=== PATIENT | male | born 1945 | race African-American/Black ===

== ENCOUNTER 2017-02-14 02:19 | Inpatient (IN) ==
[2017-02-13 14:40] LABS: URINE MICRO REVIEW NEEDED? NO; URINE SOURCE CLEAN CATCH
[2017-02-13 14:46] LABS: BASO% 0.2 % (0.0-0.8); EOS# 0.03 X1000 (0.0-0.7); EOS% 0.2 % (0.0-10.0); HEMOGLOBIN 12.9 g/dL (14.0-18.0); IMM GRAN# 0.06 X1000 (0.0-0.04); IMM GRAN% 0.5 % (0.0-0.5); LYMPH# 2.11 X1000 (1.2-3.4); MANUAL DIFF NEEDED? YES; MCH 24.2 PG (27-31); MCHC 34.9 g/dL (33-37); MCV 69.5 FL (81-99); MONO# 0.99 X1000 (0.11-0.59); MPV 9.2 FL (7.4-10.4); NEUT% 74.1 % (42.2-75.2); PLT 261 X1000 (130-400); RBC 5.32 XMIL (4.7-6.1)
[2017-02-13 14:56] LABS: BILIRUBIN URINE NEGATIVE (NEGATIVE); BLOOD URINE NEGATIVE (NEGATIVE); COLOR YELLOW; GLUCOSE URINE NEGATIVE (NEGATIVE); LEUKOCYTES URINE NEGATIVE (NEGATIVE); NITRITE URINE NEGATIVE (NEGATIVE); PH URINE 5.5; PROTEIN URINE NEGATIVE (NEGATIVE); SP GRAVITY URINE 1.018; TURBIDITY URINE CLEAR (CLEAR); UROBILINOGEN URINE NORMAL (NORMAL)
[2017-02-13 14:57] LABS: UR EPITHELIAL CELLS <10 /HPF (<10); URINE BACTERIA NEGATIVE /HPF; URINE RBC <10 /HPF (<10); URINE WBC <10 /HPF (<10)
[2017-02-13 15:16] LABS: AGAP 12; BUN 20 mg/dL (8-22); CALCIUM 9.6 mg/dL (8.8-10.2); CHLORIDE 92 mmol/L (98-107); COSMO 265; POTASSIUM 4.6 mmol/L (3.5-5.1); SODIUM 131 mmol/L (136-145); TCO2 27 mmol/L (25-35)
[2017-02-13 15:23] LABS: BANDS 1 % (0-1); LYMPHS 18 % (21-51); MONO 7 % (1-9)
[2017-02-13 16:28] LABS: INR 1.1; PROTIME 11.6 Seconds (9.2-11.7); PTT 28.7 Seconds (22.0-36.0)
[2017-02-14] MEDS ORDERED: MORPHINE IV PRN (07:04)
[2017-02-14] MEDS ORDERED: AMARYL PO SCH (08:00)
[2017-02-14] MEDS ORDERED: ALTACE PO SCH (09:00)
[2017-02-14] MEDS ORDERED: PREDNISONE PO SCH (09:00)
[2017-02-14] MEDS ORDERED: LIPITOR PO SCH (09:00)
[2017-02-14] MEDS ORDERED: ALDACTAZIDE 25/25 PO SCH (09:00)
[2017-02-14] MEDS ORDERED: NORVASC PO SCH (09:00)
[2017-02-14] MEDS ORDERED: EXPAREL 1.3% ONE (10:32)
[2017-02-14] MEDS ORDERED: VANCOMYCIN ONE (10:32)
[2017-02-14] MEDS ORDERED: NEOSPORIN G.U. IRRIGANT ONE (10:32)
[2017-02-14] MEDS ORDERED: TORADOL ONE (10:32)
[2017-02-14] MEDS ORDERED: SODIUM CHLORIDE 0.9% ONE (10:32)
[2017-02-14] MEDS ORDERED: DURAMORPH ONE (10:32)
[2017-02-14] MEDS ORDERED: CLAVE SECONDARY SET 11953 ONE (10:32)
[2017-02-14] MEDS ORDERED: MARCAINE 0.25% PF/EPI 1:200,000 ONE (10:32)
[2017-02-14] MEDS ORDERED: CYKLOKAPRON 1,000 MG/NS 1,000 MG/100 ML IVPB ONE ×2 (10:37)
[2017-02-14] MEDS ORDERED: COLACE ONE (10:42)
[2017-02-14] MEDS ORDERED: CELEBREX ONE (10:43)
[2017-02-14] MEDS ORDERED: REGLAN ONE (10:43)
[2017-02-14] MEDS ORDERED: LYRICA ONE (10:43)
[2017-02-14] MEDS ORDERED: KEFZOL 1 GM/D5W 1 GM/50 ML IVPB ONE (10:43)
[2017-02-14] MEDS ORDERED: PEPCID ONE (10:43)
[2017-02-14] MEDS ORDERED: LR 1,000 ML ONE ×2 (10:43→14:09)
[2017-02-14] MEDS ORDERED: KEFZOL 2 GM/D5W 2 GM/50 ML IVPB ONE (11:40)
[2017-02-14 12:58] LABS: URINE MICRO REVIEW NEEDED? NO; URINE SOURCE CATH
[2017-02-14 13:04] LABS: BILIRUBIN URINE NEGATIVE (NEGATIVE); BLOOD URINE NEGATIVE (NEGATIVE); COLOR YELLOW; GLUCOSE URINE NEGATIVE (NEGATIVE); LEUKOCYTES URINE NEGATIVE (NEGATIVE); NITRITE URINE NEGATIVE (NEGATIVE); PROTEIN URINE NEGATIVE (NEGATIVE); SP GRAVITY URINE 1.016; TURBIDITY URINE CLEAR (CLEAR); UR EPITHELIAL CELLS <10 /HPF (<10); URINE BACTERIA NEGATIVE /HPF; URINE RBC <10 /HPF (<10); URINE WBC <10 /HPF (<10); UROBILINOGEN URINE NORMAL (NORMAL)
[2017-02-14] MEDS ORDERED: NS 1,000 ML ONE (13:49)
[2017-02-14] MEDS ORDERED: FENTANYL ONE (13:51)
[2017-02-14] MEDS ORDERED: DIPRIVAN 1% 500 MG/50 ML BOTTLE ONE (13:52)
[2017-02-14] MEDS ORDERED: ZOFRAN ONE (14:07)
[2017-02-14] MEDS ORDERED: ROBINUL ONE (14:07)
[2017-02-14] MEDS ORDERED: NEO-SYNEPHRINE ONE (14:07)
[2017-02-14] MEDS ORDERED: OFIRMEV 1000 MG/ISOTONIC SOLN 1,000 MG/100 ML BOTTLE ONE (14:08)
[2017-02-14] MEDS ORDERED: DECADRON ONE (14:09)
--- NOTE | 2017-02-14 14:18 | OPERATIVE NOTE ---
PROCEDURE DATE: 02/14/2017 PREOPERATIVE DIAGNOSIS: Degenerative joint disease, left knee. POSTOPERATIVE DIAGNOSIS: Degenerative joint disease, left knee. PROCEDURE: Left total knee replacement. SURGEON: Shan Craig MD LAPEL BASTER: STACIA Reeves ANESTHESIA: Spinal. COMPLICATION: None. PROCEDURE IN DETAIL: A 71-year-old male presents for surgical left knee replacement. Risks, benefits, and no guarantees were discussed, and he is willing to proceed. He was taken the operating room and satisfactory anesthesia obtained. The left leg was prepped and draped in usual sterile fashion. A time-out was taken to confirm operative site, procedure, and patient. The leg was wrapped with an Esmarch. Tourniquet inflated to 350 mmHg. A midline incision was made down the front of the knee, followed by a quad tendon sparing arthrotomy. The patella was everted and resurfaced with freehand technique. With the patella subluxed laterally, the knee was flexed, intramedullary hole made in the distal femur and the distal femoral cutting block secured in 5 degrees of valgus. Distal femoral resection was made and the femur sized to a size 7 DePuy femoral component. The 4 in 1 block was secured and the anterior, posterior, and chamfer cuts sequentially made. Any osteophytes were debrided about the femur. The knee was then flexed and a PCL retractor placed behind the tibia to protect the PCL and neurovascular bundle. The tibial cutting block was secured and the tibial surface resected with care taken to maintain the collateral ligaments. The joint space was tight in both flexion and extension, and an additional 2 mm taken off the tibia with good soft tissue balance. Any osteophytes were debrided from the tibia. The tibia was sized to a size 7 tibial tray. Trial reduction was performed with good range of motion and stability with a 5 mm rotating platform trial poly. The patella was then sized to a size 38 medialized dome patella and the drill holes prepared for the patella and femoral implant. The trial implants were removed and the bony surfaces thoroughly irrigated with pulsatile lavage. Cement with a gram of vancomycin was then utilized to cement a DePuy size 7 rotating platform tibial base plate, a size 7 cruciate retaining left femoral component, and a 38 medialized dome patella. While the cement cured, excess cement was removed with a Colton elevator. The joint capsule was injected with Exparel for pain management and the Hemovac drain placed. After curing of the cement, the poly was placed with a size 7, 5 mm thick rotating platform poly into the tibia. The knee reduced and final range of motion assessed with 0-120 degrees of flexion and midline patellar tracking. The wound was then copiously irrigated with irrigant. The arthrotomy was then closed over the drain with #1 Vicryl, the subcutaneous with 2-0 Vicryl, and the skin with skin freddie. Sterile dressings completed the closure and the patient was recovered from anesthesia and transferred to the recovery room in stable condition. No intraoperative complications were noted. Instrument count and sponge count was correct at the time of closure. cc: Joshua Craig MD
[2017-02-14] MEDS ORDERED: NS 1,000 ML IV SCH (15:45)
--- NOTE | 2017-02-14 16:49 | Diag Imaging Result Document ---
PROCEDURE NAME: KNEE 1-2 VIEWS-LEFT - 02/14/2017 LEFT KNEE 2 VIEWS PORTABLE: FINDINGS: There is a total knee arthroplasty. There appears to be appropriate alignment. IMPRESSION: Postsurgical changes.
[2017-02-14] MEDS: GLUCOPHAGE XR PO SCH (18:13)
[2017-02-14] MEDS: PERIDEX MT SCH (19:48)
[2017-02-14] MEDS: COLACE PO SCH (19:49)
[2017-02-14] MEDS: NORCO-10 PO PRN (19:49)
[2017-02-14] MEDS: KEFZOL 1 GM/D5W 1 GM/50 ML IVPB IV SCH (19:50)
[2017-02-15] MEDS: COLACE PO SCH ×2 (00:37→08:29)
[2017-02-15] MEDS: NORCO-10 PO PRN ×3 (01:29→15:02)
[2017-02-15] MEDS: KEFZOL 1 GM/D5W 1 GM/50 ML IVPB IV SCH (04:18)
[2017-02-15 05:54] LABS: HEMATOCRIT 31.1 % (42.0-52.0); HEMOGLOBIN 10.8 g/dL (14.0-18.0)
[2017-02-15] MEDS ORDERED: XARELTO PO SCH (06:00)
[2017-02-15 06:23] LABS: AGAP 15; BUN 18 mg/dL (8-22); CALCIUM 8.5 mg/dL (8.8-10.2); CHLORIDE 94 mmol/L (98-107); COSMO 269; POTASSIUM 5.3 mmol/L (3.5-5.1); SODIUM 130 mmol/L (136-145); TCO2 21 mmol/L (25-35)
[2017-02-15] MEDS ORDERED: ZOFRAN IV PRN (07:07)
[2017-02-15] MEDS: PERIDEX MT SCH (08:28)
[2017-02-15] MEDS: GLUCOPHAGE XR PO SCH (08:29)
[2017-02-15] MEDS ORDERED: NORVASC PO SCH ×2 (09:00)
[2017-02-15] MEDS ORDERED: CELEBREX PO SCH (09:00)
[2017-02-15] MEDS ORDERED: TUMS PO PRN (10:37)
--- NOTE | 2017-02-15 10:58 | DISCHARGE SUMMARY ---
ADMISSION DATE: 02/14/2017 DISCHARGE DATE: 02/15/2017 ADMITTING DIAGNOSIS: Degenerative joint disease of the left knee. ADDITIONAL DIAGNOSES: 1. Hypertension. 2. Noninsulin-dependent diabetes mellitus. 3. Polymyalgia rheumatica. 4. Degenerative disk disease. DISCHARGE DIAGNOSES: 1. Degenerative joint disease of the left knee. 2. Hypertension. 3. Noninsulin-dependent diabetes mellitus. 4. Polymyalgia rheumatica. 5. Degenerative disk disease. ADMITTING HISTORY AND HOSPITAL COURSE: Mr. Betancur is a 71-year-old male who had progressive left knee pain. Was admitted to the hospital for a left total knee arthroplasty. After his surgery, his vital signs remained stable. He remained afebrile. There are no signs or symptoms of infection or DVT. The incision looks clean and dry. He is currently ambulating with physical therapy. We plan to discharge him home today with home health coming out to his house and working with him. DISCHARGE MEDICATIONS: Spironolactone/hydrochlorothiazide 25/25 mg tablet 1 p.o. daily. Prednisone 5 mg tablet 3 p.o. daily. Altace 10 mg p.o. daily. Glimepiride 1 mg p.o. daily, Metformin 500 mg 2 p.o. b.i.d., Celebrex 200 mg p.o. daily, amlodipine and/atorvastatin 1 p.o. daily. [place]ock 10, one to 2 p.o. q.4-6 hours p.r.n. for pain. Xarelto 10 mg 1 p.o. daily for 2 weeks. DISCHARGE INSTRUCTIONS: Mr. Betancur is to discharge home today where he is going to work with physical therapy. I discussed with him he is going home with blood thinner and pain medication and explained those medications to him. Talked to him about if he has any worsening signs or symptoms and to call us immediately with any signs of infection or drainage, fever, chills. We also talked to him about following up with Dr. Craig in about 10 days to have his freddie removed. Dictated by STACIA Reeves for Joshua Craig MD cc: STACIA Reeves MD
[2017-02-15 12:32] VITALS: BP 128/66
--- NOTE | 2017-02-15 13:56 | HISTORY AND PHYSICAL ---
CHIEF COMPLAINT: Left leg pain and knee pain. Mr. Betancur is a 71-year-old male who is consistently having left knee pain. Radiographic images obtained reveal images consistent with advanced degenerative joint disease. He is being admitted to the hospital today for a left total knee arthroplasty. PAST MEDICAL HISTORY: 1. Osteoarthritis. 2. Hypertension. 3. Tyj-yhnmbqn-wlexhnecj diabetes mellitus. 4. Polymyalgia rheumatica. 5. Degenerative disk disease. SURGICAL HISTORY: 1. Low back fusion. 2. Bilateral carpal tunnel release. 3. Appendectomy. 4. Cataracts. FAMILY HISTORY: Noncontributory. SOCIAL HISTORY: He maintains his own home. Denies tobacco and alcohol. HOME MEDICATIONS: 1. Spironolactone/hydrochlorothiazide 25-25 1 p.o. daily. 2. Prednisone 5 mg tablet 3 tablets p.o. daily. 3. Altace 10 mg p.o. daily. 4. Glimepiride 1 mg p.o. q.a.m. 5. Glucophage 500 mg 2 tablets p.o. b.i.d. 6. Celebrex 200 mg p.o. daily. 7. Amlodipine/atorvastatin 10-20 mg tablet 1 p.o. daily. ALLERGIES: No known drug allergies. REVIEW OF SYSTEMS: HEENT: The patient denies any problems with his head, ears, eyes, nose and throat. Cardiac: Patient reports having hypertension. Denies any other cardiac problems. Pulmonary: Patient denies any lung problems. Denies any wheezing or shortness of breath. Gastrointestinal: Patient denies any chronic gastrointestinal problems, any nausea, vomiting, or diarrhea. Genitourinary: Patient denies any genitourinary problems. Neurological: Patient denies any dysesthesias, any numbness, tingling, reports good sensation. Musculoskeletal: Patient reports left knee pain and some low back pain, as well as the patient reports having history of noninsulin-dependent diabetes mellitus and polymyalgia rheumatica. PHYSICAL EXAMINATION: GENERAL: The patient is awake, sitting in bed. He is articulate and able to answer questions appropriately. HEENT: Head is normocephalic, atraumatic. Pupils equal, round, react to light. Nares patent. Throat without exudate. CARDIAC: S1-S2 auscultated. No murmur, rub or gallop noted. LUNGS: Clear to auscultation bilaterally. ABDOMEN: Soft, nontender, nondistended. Bowel sounds present in all quadrants. GENITOURINARY: Not examined. NEUROLOGICAL: Patient has good sensation to dull touch in all extremities. Cranial nerves 2-12 grossly intact. MUSCULOSKELETAL: Examination of left knee shows the patient has pain with palpation and passive range of motion. IMPRESSION: Degenerative joint disease left knee. PLAN: Left total knee arthroplasty. The risks, benefits, and alternatives of surgery were discussed with the patient including risk of anesthesia, bleeding, damage to blood vessels, nerves, tendons, ligaments, and other imponderables and the patient agreed to proceed with surgery at this time. Dictated by STACIA Reeves for Joshua Craig MD cc: STACIA Reeves MD
--- NOTE | 2017-02-15 14:57 | HISTORY AND PHYSICAL ---
CHIEF COMPLAINT: Left knee pain. HISTORY OF PRESENT ILLNESS: Mr. Betancur is a 71-year-old black male who has experienced progressive left knee pain for some time. His pain is worse with weightbearing activities. Radiographic evaluation of the knee reveals findings consistent with advanced degenerative joint disease. Despite conservative therapy, Mr. Betancur has a significant reduction in his ability to perform his normal daily activities and he will be admitted at this time for a left total knee arthroplasty. PRIMARY CARE PROVIDER: Dr. Jasper Gonzalez. ALLERGIES: No known drug allergies. PAST MEDICAL HISTORY: 1. Osteoarthritis. 2. Hypertension. 3. Jqd-tsfzdbs-jwxyowvvp diabetes mellitus. 4. Polymyalgia rheumatica. 5. Degenerative disk disease. PAST SURGICAL HISTORY: 1. Low back fusion. 2. Bilateral carpal tunnel release. 3. Appendectomy. 4. Cataract surgery. SOCIAL HISTORY: The patient is . He maintains a home with his . He is a remote smoker. HOME MEDICATIONS: 1. Prednisone 3 tablets in the morning taken as directed. 2. Amlodipine/atorvastatin 10/20 mg 1 tablet by mouth daily. 3. Aldactazide 25/25 tablet 1 tablet by mouth daily. 4. Ramipril 10 mg by mouth daily. 5. Glucophage XR 2 tablets by mouth twice daily. 6. Glimepiride 1 mg by mouth in the morning. 7. Celecoxib 200 mg by mouth daily. 8. Xarelto 10 mg by mouth every 24 hours 9. Moca 10 1-2 tablets every 4 hours as needed. REVIEW OF SYSTEMS: HEENT: No known history of stroke or cerebrovascular disease. Denies recent dizzy spells or syncopal events. Cardiac: The patient has a history of hypertension. No reported carotid artery disease or valvular heart disease. Denies chest pain, pressure, or other anginal equivalents. Pulmonary: The patient is a remote smoker. Gastrointestinal: Denies recent nausea, vomiting, diarrhea, or constipation. Genitourinary: No kidney or bladder infection or dysfunction. Neurological: Denies extremity radicular pain, weakness, or paresthesia. Musculoskeletal: He is here today for management of his left knee osteoarthritis. He has a longstanding history of degenerative disk disease. Other: He is treated for non-insulin dependent diabetes mellitus and polymyalgia rheumatica. PHYSICAL EXAMINATION: GENERAL: The patient is resting comfortably in bed. He has family at his bedside. He is articulate and able to answer all questions fully. HEENT: Head is normocephalic and atraumatic. Pupils are equal, round, and react to light. Nares patent. Throat without exudate. NECK: Supple. HEART: Regular rate and rhythm. No murmurs, gallops, or rubs. LUNGS: Clear to auscultation bilaterally. ABDOMEN: Round. Bowel sounds are present. It is nontender to palpation. GENITOURINARY: Not examined. NEUROLOGICAL: Gross motor function is intact with good sensory perception. MUSCULOSKELETAL: Left knee: No gross deformity, edema, or ecchymosis is noted. NEUROVASCULAR: Status is intact. IMPRESSION: Degenerative joint disease of the left knee. PLAN: Left total knee arthroplasty. The risks and benefits of surgery were explained to the patient including the risk of anesthesia, , bleeding, infection, damage to ligaments, tendons, nerves and blood vessels, the possibility of blood clots and other imponderables were described and the patient wishes to proceed with operative management of his knee at this time. Dictated by SHELLY Peterson for Joshua Craig MD cc: SHELLY Peterson MD
== END 2017-02-15 15:48 | disposition home health service (06) ==
LOC: SURHOLD 02:19 → 4N 13:27
PROVIDERS: ADMIT Orthopaedic Surgery Adult Reconstructive Orthopaedic Surgery; ATTEND Orthopaedic Surgery Adult Reconstructive Orthopaedic Surgery

== ENCOUNTER 2017-03-09 11:22 | Observation (INO) ==
[2017-03-09] MEDS ORDERED: VANCOMYCIN IV PER PHARMACY MISC SCH (12:12)
[2017-03-09] MEDS ORDERED: NORCO-7.5 PO PRN (12:12)
[2017-03-09] MEDS ORDERED: DILAUDID IV ONE (12:12)
[2017-03-09] MEDS ORDERED: ZOFRAN IV PRN (13:00)
[2017-03-09 13:01] LABS: BASO% 0.3 % (0.0-0.8); EOS# 0.03 X1000 (0.0-0.7); EOS% 0.4 % (0.0-10.0); HEMATOCRIT 32.1 % (42.0-52.0); IMM GRAN# 0.04 X1000 (0.0-0.04); IMM GRAN% 0.6 % (0.0-0.5); LYMPH% 19.4 % (20.5-51.1); MANUAL DIFF NEEDED? YES; MCH 23.6 PG (27-31); MCHC 34.3 g/dL (33-37); MCV 68.9 FL (81-99); MONO# 0.56 X1000 (0.11-0.59); MONO% 7.8 % (1.7-9.3); MPV 8.8 FL (7.4-10.4); NEUT% 71.5 % (42.2-75.2); PLT 531 X1000 (130-400); RBC 4.66 XMIL (4.7-6.1)
[2017-03-09 13:19] LABS: LYMPHS 30 % (21-51); MONO 4 % (1-9)
[2017-03-09 13:49] LABS: AGAP 25; ALKALINE PHOSPHATASE 128 U/L (32-122); BUN 15 mg/dL (8-22); CALCIUM 9.7 mg/dL (8.8-10.2); CHLORIDE 90 mmol/L (98-107); COSMO 269; GOT 16 U/L (10-34); GPT 9 U/L (10-44); POTASSIUM 4.4 mmol/L (3.5-5.1); SODIUM 133 mmol/L (136-145); TCO2 18 mmol/L (25-35); TOTAL BILIRUBIN 0.97 mg/dL (0.20-1.00)
[2017-03-09] MEDS: SOLU-CORTEF IV SCH (13:51)
[2017-03-09] MEDS: XARELTO PO SCH (13:52)
[2017-03-09] MEDS: NS 1,000 ML IV SCH (13:52)
--- NOTE | 2017-03-09 14:01 | CONSULTATION ---
DATE OF CONSULTATION: 03/09/2017 CHIEF COMPLAINT: Left leg pain and history of subjective fever, chills and emesis after total knee arthroplasty by Dr. Craig on the . He was admitted to the hospital by Dr. Gonzalez and I was asked to see him in orthopedic consultation. PHYSICAL EXAMINATION: General: Well-developed, well-nourished male. He is alert, oriented, and cooperative with exam. Exam of his knee reveals really no effusions. His incision is well healed. He has good early range of motion of his knee. His knee is stable to varus and valgus stresses. He does admit that the Dr. Craig had drained his knee earlier in the week when he took out his freddie and there was bloody drainage. He complains of diffuse leg pain. PAST MEDICAL HISTORY, PAST SURGERIES MEDICATIONS AND ALLERGIES: See admission history and physical. PHYSICAL EXAM: Denies any real tenderness in his calf. He has pain mildly with range of motion but his knee is stable and his leg is neurovascularly intact. IMPRESSION: Left leg pain with constitutional symptoms of undetermined etiology. PLAN: We will check the lab work. I will let Dr. Craig come and see him and evaluate him as far as his knee is concerned. He will follow up with Dr. Craig once he is discharged. At this time I see no reason to aspirate his knee as there is no real sign of infection to his knee. I would recommend as soon as he is feeling better to consider physical therapy. cc: MD Jasper Pollack MD
[2017-03-09] MEDS ORDERED: VANCOMYCIN 2 GM in NS 500 ML IV ONE (16:00)
[2017-03-09] MEDS: DILAUDID IV PRN (21:44)
[2017-03-10] MEDS: SOLU-CORTEF IV SCH (01:45)
[2017-03-10] MEDS: NS 1,000 ML IV SCH (03:41)
[2017-03-10] MEDS: DILAUDID IV PRN (06:43)
[2017-03-10 07:00] LABS: AGAP 11; BUN 11 mg/dL (8-22); CALCIUM 8.7 mg/dL (8.8-10.2); CHLORIDE 100 mmol/L (98-107); COSMO 270; POTASSIUM 4.2 mmol/L (3.5-5.1); SODIUM 134 mmol/L (136-145); TCO2 23 mmol/L (25-35)
[2017-03-10] MEDS: PREDNISONE PO SCH ×2 (08:15→22:05)
[2017-03-10] MEDS: SEPTRA DS PO SCH ×2 (08:15→22:05)
[2017-03-10] MEDS: XARELTO PO SCH (13:28)
[2017-03-10] MEDS ORDERED: VANCOMYCIN 1,600 MG in NS 250 ML IV SCH (16:00)
[2017-03-11 07:39] VITALS: BP 140/71
[2017-03-11] MEDS: PREDNISONE PO SCH (09:50)
[2017-03-11] MEDS: SEPTRA DS PO SCH (09:50)
--- NOTE | 2017-03-11 09:52 | DISCHARGE SUMMARY ---
ADMISSION DATE: 03/09/2017 DISCHARGE DATE: 03/11/2017 FINAL DIAGNOSES: 1. Intractable nausea and vomiting. 2. Probable adrenal insufficiency, acute. 3. Type 2 diabetes mellitus. 4. Polymyalgia rheumatica. 5. Recent left total knee replacement with moderate inflammation but no apparent infection. HISTORY OF PRESENT ILLNESS: Mr. Betancur is a 71-year-old gentleman who presented to my office on the day of admission for routine yearly physical examination but was obviously very uncomfortable and in a lot of pain. He had undergone left total knee replacement approximately 3-1/2 weeks prior but has not done well at home with persistent nausea and vomiting. His orthopedic surgeon, Dr. Craig, saw him approximately a week before admission and tapped the hemarthrosis of the left knee and placed him on prophylactic antibiotics because of the needle stick. Physical examination revealed a profoundly uncomfortable elderly black gentleman hunched over in a chair, clutching his left knee. His skin turgor was slightly reduced. His neck was supple. Lungs were clear. Cardiac exam showed regular rate and rhythm, no murmurs. Abdomen was soft and nontender. The left knee had intact Steri-Strips with trace effusion, moderate increased warmth, trace redness, moderately increased pain with range of motion. The wound edges appeared to be healing well. DATABASE: White blood count is 7200, hemoglobin 11, hematocrit 32.1%. MCV is 69 (chronic microcytosis). Electrolytes were remarkable for sodium of 133, potassium 4.4, CO2 of 18, BUN and creatinine were normal, glucose 122. HOSPITAL COURSE: He was admitted to the Medical Floor, treated with intravenous fluids. As I suspected, he had been vomiting up his prednisone and unable to keep it down. His nausea and vomiting probably was due in part to acute adrenal insufficiency. He was given intravenous Solu Cortef. He was also seen by his orthopedist who felt that his knee did not appear to be acutely infected and recommended we continue a few more days of the prophylactic antibiotic. With IV fluids and Solu Cortef, his symptoms resolved quickly. He was advanced to a soft regular diet and tolerated this well. Repeat electrolytes showed a normal CO2 and improved sodium. His fingerstick blood sugars were acceptable despite the steroids. At the time of discharge, he has been tolerating a soft GI diet very well for greater than 24 hours. His knee pain is much improved, and he is now extremely comfortable. He is to return to my office in 7 to 10 days for followup. DISCHARGE MEDICATIONS: Prednisone 10 mg twice a day, trimethoprim sulfa DS tablets 1 twice a day for 5 days, Aldactazide 25/25 one q.a.m., ramipril 10 mg q.a.m., glimepiride 1 mg daily, metformin XR 500 mg twice a day, Celebrex 200 mg daily, amlodipine/atorvastatin 10/20 one daily, Phenergan 25 mg p.r.n. for nausea and vomiting, Percocet 5/325 one q.6 to 8 hours p.r.n. for pain. cc: Jasper Gonzalez MD
--- NOTE | 2017-03-15 20:41 | Extremity Venous Study ---
PROCEDURE NAME: Venous U/S Left Leg - 03/09/2017 LEFT LOWER EXTREMITY VENOUS DUPLEX, AND COLOR FLOW IMAGING STUDY USING THE [employer] E 9 ULTRASOUND SYSTEM WITH A 9 L-D TRANSDUCER: REFERRING PHYSICIAN: Jesus Mendoza MD IDENTIFYING INFORMATION: A 71-year-old male. TRANSITION RN: Yancy Syed RVT. INDICATIONS: 1. History of knee joint replacement. ICD 10 Z96.659. 2. Swelling of the limb. ICD 10 M79.89. FINDINGS: The left common femoral vein and its branches, deep and superficial femoral veins were satisfactorily imaged. They had flow through them and were compressible. Left popliteal vein and the deep veins below the left knee were all compressible and had flow through them. Superficial veins of the left lower extremity were compressible throughout their length. INTERPRETATION: No evidence of acute deep or superficial venous thrombosis of the left lower extremity. cc: MD Jesus Edgar MD Russell T. Barr, MD
== END 2017-03-11 13:22 | disposition home or self-care (01) ==
LOC: DIRADM 11:22 → OPS 11:22 → SURHOLD 11:22 → 3N 11:57 → DIRADM 11:58 → UNDODISIN 03-11 13:22 → EDSTATUS 03-14 14:03
PROVIDERS: ADMIT Internal Medicine; ATTEND Internal Medicine